=== PATIENT | female | born 1940 | race Caucasian/White ===

== ENCOUNTER → 2017-11-10 | Outpatient (CLI) | payer MEDICARE, OTHER ==
[2017-11-10 16:58] LABS: FREE T4 1.26 NG/DL (0.76-1.46)
== END ==
LOC: PLAB 12:55
DX: E05.90 Thyrotoxicosis, unspecified without thyrotoxic crisis or storm (principal)
CPT/HCPCS: 36415; 84439; 84443

== ENCOUNTER → 2017-12-22 | Outpatient (CLI) | payer MEDICARE, OTHER ==
[2017-12-22 19:07] LABS: FREE T4 0.9 NG/DL (0.76-1.46)
== END ==
LOC: PLAB 13:18
DX: E05.90 Thyrotoxicosis, unspecified without thyrotoxic crisis or storm (principal)
CPT/HCPCS: 36415; 84439; 84443